=== PATIENT | female | born 1940 | race Caucasian/White ===

== ENCOUNTER → 2019-05-05 | Outpatient (CLI) | payer MEDICARE, OTHER ==
[~2019-05-05] MED LIST: ALLO100 PO; BENTYL10 MG PO; CIPR500 PO; HYDCHL50 PO; METF500C PO; METR500 PO; POTCHL10ER PO; TRAN2 PO; Ventolin/Prove6.7 GM INH
== END | disposition home or self-care (01) ==
LOC: LAB 10:11 → LAB SHORT 10:11
DX: N39.0 Urinary tract infection, site not specified (principal)
CPT/HCPCS: 87077; 87086; 87186

== ENCOUNTER → 2019-12-20 | Outpatient (CLI) | payer MEDICARE, OTHER | END | disposition home or self-care (01) | LOC: LAB SHORT 13:58 → LAB 13:58 | DX: N39.0 Urinary tract infection, site not specified (principal) | CPT/HCPCS: 87077; 87086; 87186 ==

== ENCOUNTER → 2020-02-09 | Outpatient (CLI) | payer MEDICARE, OTHER | END | disposition home or self-care (01) | LOC: LAB 12:26 → LAB SHORT 12:26 | DX: N39.0 Urinary tract infection, site not specified (principal) | CPT/HCPCS: 87077; 87086; 87186 ==

== ENCOUNTER → 2020-09-04 | Outpatient (CLI) | payer MEDICARE, OTHER | END | disposition home or self-care (01) | LOC: LAB 16:40 → LAB SHORT 16:40 | DX: N39.0 Urinary tract infection, site not specified (principal) | CPT/HCPCS: 87077; 87086; 87186 ==

== ENCOUNTER 2021-09-23 07:09 | Emergency (ER) | payer MEDICARE, OTHER ==
[~2021-09-23] VITALS: Ht 165.1 cm; Wt 81.7 kg
[~2021-09-23 07:09] MED LIST changes: +CEPH500 PO; +PROBIOTIC1 EA13 PO
[2021-09-23 07:35] LABS: Source, Urine Clean Catch
[2021-09-23 07:40] LABS: Appearance, Urine Clear (Clear); Bilirubin, Urine Neg (Neg); Blood, Urine Neg (Neg); Color, Urine Yellow (P-Yellow); Glucose Qualitative, Urine Neg (Neg); Ketones, Urine Neg (Neg); Leukocyte Esterase, Urine 1+ (Neg); Nitrite, Urine Neg (Neg); Protein, Urine Neg (Neg); Specific Gravity, Urine 1.015 (1.003-1.022); Urobilinogen, Urine NORM (Normal)
[2021-09-23 07:46] LABS: Bacteria Mod /hpf; Red Blood Cells, Urine 0-2 /hpf (0-2); Squamous Epithelial Cells Mod /hpf (Few)
[2021-09-23 08:24] LABS: Source, Urine Straight Cath
[2021-09-23 08:29] LABS: Bilirubin, Urine Neg (Neg); Blood, Urine Neg (Neg); Glucose Qualitative, Urine Neg (Neg); Ketones, Urine Neg (Neg); Leukocyte Esterase, Urine Neg (Neg); Nitrite, Urine Neg (Neg); Protein, Urine Neg (Neg); Specific Gravity, Urine 1.015 (1.003-1.022); Urobilinogen, Urine NORM (Normal)
[2021-09-23 08:35] LABS: Appearance, Urine Clear (Clear); Color, Urine Yellow (P-Yellow)
== END 2021-09-23 09:20 | disposition home or self-care (01) ==
LOC: ER 07:09
PROVIDERS: Student in an Organized Health Care Education/Training Program
DX: R35.0 Frequency of micturition (principal); R10.30 Lower abdominal pain, unspecified; I10 Essential (primary) hypertension; E11.9 Type 2 diabetes mellitus without complications; Z79.899 Other long term (current) drug therapy; Z79.84 Long term (current) use of oral hypoglycemic drugs
CPT/HCPCS: 81001; 81003; P9612

== ENCOUNTER 2022-01-12 07:48 | Emergency (ER) | payer MEDICARE, OTHER ==
[~2022-01-12] VITALS: Ht 165.1 cm; Wt 83.0 kg
[2022-01-12] MEDS ORDERED: Indomethacin50 MG PO (08:34)
[2022-01-12] MEDS ORDERED: Norco 5-325 Ta1 EACH PO (08:34)
== END 2022-01-12 09:10 | disposition home or self-care (01) ==
LOC: ER 07:48
DX: M10.9 Gout, unspecified (principal); I10 Essential (primary) hypertension; E11.9 Type 2 diabetes mellitus without complications; Z79.84 Long term (current) use of oral hypoglycemic drugs; Z79.899 Other long term (current) drug therapy
CPT/HCPCS: 99283

== ENCOUNTER → 2023-03-26 | Outpatient (CLI) | payer MEDICARE, OTHER ==
[~2023-03-26] MED LIST changes: +Indomethacin50 MG PO; +Norco 5-325 Ta1 EACH PO
== END ==
LOC: LAB 15:07 → LAB SHORT 15:07
DX: R35.0 Frequency of micturition (principal)
CPT/HCPCS: 87077; 87086; 87186

== ENCOUNTER → 2024-05-03 | Outpatient (CLI) | payer MEDICARE, OTHER ==
[2024-05-03 18:05] LABS: Creatinine, Urine Random 45.8 mg/dL (27.00-270.00); Microalb/Creat Ratio UR, Rand 49.127 mg/g (0.000-30.000); Microalbumin, Random Urine 22.5 mg/L (0.000-20.000)
== END ==
LOC: LAB SHORT 15:49 → LAB 15:49
PROVIDERS: Family Medicine
DX: E11.21 Type 2 diabetes mellitus with diabetic nephropathy (principal); E11.39 Type 2 diabetes mellitus with other diabetic ophthalmic complication; E11.51 Type 2 diabetes mellitus with diabetic peripheral angiopathy without gangrene; E11.59 Type 2 diabetes mellitus with other circulatory complications
CPT/HCPCS: 82043; 82570